=== PATIENT | male | born 1940 | race African-American/Black ===

== ENCOUNTER → 2016-07-07 | Outpatient (CLI) | payer SELFPAY ==
[~2016-07-07] MED LIST: AMLO10TA PO; LOSA25TA8 PO
== END ==
LOC: M SMT PRO 08:38
PROVIDERS: ATTEND Urology
DX: R97.20 Elevated prostate specific antigen [PSA] (principal); Z53.9 Procedure and treatment not carried out, unspecified reason

== ENCOUNTER → 2016-07-07 | Outpatient (CLI) | payer SELFPAY ==
--- NOTE | 2016-07-07 13:06 | REP ---
CHEST, TWO VIEWS: HISTORY: Urinary obstruction. Calcified granuloma are present in the left lower lobe. The right lung is clear. The heart is normal in size. The pulmonary vasculature is normal in appearance. Degenerative change is present in the thoracic spine. IMPRESSION: No acute disease. Signed by Alfredo Pollard MD 07/07/2016 01:17 P
[2016-07-07 13:27] LABS: INR 1.07
== END ==
LOC: M SMT 11:31
PROVIDERS: ATTEND Urology
DX: N40.1 Benign prostatic hyperplasia with lower urinary tract symptoms (principal)

== ENCOUNTER → 2016-07-10 | Outpatient (REF) | payer SELFPAY ==
[2016-07-10 13:35] LABS: ANION GAP 9 MEQ/L (8-16); BLOOD UREA NITROGEN 9 MG/DL (7-18); CALCIUM LEVEL 8.6 MG/DL (8.8-10.2); CARBON DIOXIDE LEVEL 29 MEQ/L (21-32); CHLORIDE LEVEL 102 MEQ/L (98-107); CREATININE FOR GFR 0.87 MG/DL (0.70-1.30); GLOMERULAR FILTRATION RATE > 60.0 (>42); GLUCOSE, FASTING 100 MG/DL (83-110); POTASSIUM SERUM 3.4 MEQ/L (3.5-5.1); SODIUM LEVEL 140 MEQ/L (136-145)
== END ==
LOC: M SFHCPLAZ 08:59
PROVIDERS: ATTEND Family Medicine
DX: Z01.818 Encounter for other preprocedural examination (principal); E87.6 Hypokalemia

== ENCOUNTER → 2016-07-15 | Day surgery (SDC) | payer SELFPAY ==
[~2016-07-15] VITALS: Ht 170.2 cm; Wt 74.4 kg
[~2016-07-15] MED LIST changes: +FUROSEMIDE 100 MG/10 ML VIAL (J1940) As Ordered ONE; +GLYCOPYRROLATE INJ 0.2 MG/ML 2 ML VIAL As Ordered ONE; +HYDROmorphone HCL 1 MG/ML SYRINGE (J1170) As Ordered ONE; +LIDOCAINE 2% INJ 100 MG/5 ML SDV (FOR ANES.) As Ordered ONE; +LR 1,000 ML IV SCH; +MIDAZOLAM INJ 2 MG/2 ML VIAL (J2250) As Ordered ONE; +NEOSTIGMINE 1MG/ML 5 ML SYRINGE (J2710) As Ordered ONE; +ONDANSETRON 4MG/2ML VIAL (J2405) As Ordered ONE; +ONDANSETRON 4MG/2ML VIAL (J2405) IV PRN; +PERCOCET 5MG/325MG TAB PO PRN; +PHENYLephrine HCL 500 MCG/5 ML (100MCG/ML) SYRINGE (J2370) As Ordered ONE; +PROPOFOL 200 MG/20 ML VIAL As Ordered ONE; +ROCURONIUM BROMIDE 50 MG/5 ML VIAL As Ordered ONE; +dexameTHASONE 4 MG/ML 1ML VIAL (J1100) As Ordered ONE; +fentaNYL 100 MCG/2 ML INJECTION (J3010) As Ordered ONE; +oxyBUTYnin 5 MG TAB PO PRN
[2016-07-15] MEDS: LR 1,000 ML IV SCH ×2 (08:25→12:06)
[2016-07-15] MEDS: fentaNYL 100 MCG/2 ML INJECTION (J3010) IV PRN ×4 (12:45→13:06)
[2016-07-15] MEDS: HYDROmorphone HCL 1 MG/ML SYRINGE (J1170) IV PRN ×2 (13:53→14:01)
--- NOTE | 2016-07-15 13:58 | RO ---
DATE OF PROCEDURE: 07/15/2016 PREPROCEDURE DIAGNOSIS: Benign prostatic hyperplasia with lower urinary tract symptoms. POSTPROCEDURE DIAGNOSIS: Benign prostatic hyperplastic with lower urinary tract symptoms. PROCEDURE: Cystoscopy, button transurethral electrovaporization of the prostate. SURGEON: Dr. Galen Hollingsworth WATCH REPAIRER APPRENTICE: None. ANESTHESIA: General. OPERATIVE INDICATIONS: This is a 76-year-old male with benign prostatic hyperplasia with refractory lower urinary tract symptoms not responding to medical therapy. It was recommended he be brought to the operating room today for the above listed procedure. Of note, the patient has had a transurethral resection of the prostate approximately 7 to 8 years ago. DESCRIPTION OF PROCEDURE: The patient was brought to the operating room where general anesthesia was induced. Prophylactic antibiotics were infused. He was then placed in dorsal lithotomy position, prepped and draped in the usual sterile fashion. At this point, the button resectoscope was inserted into the urethral meatus and advanced into the bladder using the visual obturator. At this point, we noted the location of the bilateral ureteral orifices as well as the verumontanum. There are no bladder abnormalities seen. At this point, we began vaporizing hypoplastic tissue beginning circumferentially at the bladder neck. We then vaporized the hypoplastic tissue in both lobes of disease. Throughout the procedure, we made sure not to vaporize too close to the ureteral orifices or distal to the verumontanum. We kept doing this until there was a clear channel established within the prostatic urethra. Once done, we checked hemostasis and hemostasis was obtained using coagulation current. At this point, the button resectoscope was removed and a 20-Czech catheter was inserted into the bladder and the balloon was filled with 15 mL of sterile water. At the end of the procedure, fluid drained clear out of the bladder. The catheter was then connected to gravity drainage and this marked the conclusion of the procedure. The patient was then taken out of dorsal lithotomy position, awakened from anesthesia and transported to the recovery room in stable condition. ESTIMATED BLOOD LOSS: 10 mL. COMPLICATIONS: None. SPECIMENS: None. PLAN: The patient will followup in the clinic in about 1 week for catheter removal and voiding trial.
[2016-07-15 16:15] VITALS: BP 140/70
== END ==
LOC: M SDC 07:35
PROVIDERS: ATTEND Urology
DX: N40.1 Benign prostatic hyperplasia with lower urinary tract symptoms (principal); R97.20 Elevated prostate specific antigen [PSA]; I11.9 Hypertensive heart disease without heart failure; E87.6 Hypokalemia; Z79.899 Other long term (current) drug therapy
CPT/HCPCS: 52601; J0690; J1100; J1170; J1940; J2250; J2370; J2405; J2710; J3010